=== PATIENT | female | born 1995 ===

== ENCOUNTER 2018-02-23 19:26 | Emergency (ER) | payer BC, MEDICAID ==
[2018-02-23 19:45] VITALS: BP 114/87; PULSE 87; RESP 16; TEMP 98.5; O2SAT 98
--- NOTE | 2018-02-23 20:01 | ED PDOC ---
HPI: Back Time Seen by Provider: 02/23/18 19:50 Chief Complaint (Nursing): Back Pain Chief Complaint (Provider): low back pain History Per: Patient Onset/Duration Of Symptoms: Worse Since (3 weeks ago) Current Symptoms Are (Timing): Still Present Additional Complaint(s): Aleyda is a 22 y/o female with a history of chronic back pain who presents to the ED complaining of low back pain. Patient states that she has always had some pain, but it has been worse in the past 3 weeks. She denies recent fall or trauma. Patient states since the pain has worsened in the past 3 weeks she has not taken anything for pain relief. She also mentions that she fell in 2012 and thinks that at that time she may have broken her tailbone. No associated bowel or bladder dysfunction. PMD: Dr. Walter Damon Past Medical History Reviewed: Historical Data, Nursing Documentation, Vital Signs Vital Signs: Last Vital Signs Temp 98.5 F 02/23/18 19:41 Pulse 87 02/23/18 19:41 Resp 16 02/23/18 19:41 BP 114/87 02/23/18 19:41 Pulse Ox 98 02/23/18 19:41 - Medical History PMH: Back Problems - Surgical History Surgical History: No Surg Hx - Family History Family History: States: No Known Family Hx - Living Arrangements Living Arrangements: With Family - Social History Current smoker - smoking cessation education provided: No Alcohol: None Drugs: Denies - Home Medications Home Medications: Ambulatory Orders Medication Instructions Recorded Cyclobenzaprine [Cyclobenzaprine 10 mg PO TID PRN #20 tab 02/23/18 HCl] Naproxen [Naprosyn] 500 mg PO BID #20 tab 02/23/18 - Allergies Allergies/Adverse Reactions: Allergies Allergy/AdvReac Type Severity Reaction Status Date / Time No Known Allergies Allergy Verified 02/23/18 19:41 Review of Systems ROS Statement: Except As Marked, All Systems Reviewed And Found Negative Genitourinary Female: Negative for: Dysuria Musculoskeletal: Positive for: Back Pain (lower) Physical Exam - Reviewed Nursing Documentation Reviewed: Yes Vital Signs Reviewed: Yes - Physical Exam Appears: Positive for: Well, Non-toxic, No Acute Distress Skin: Positive for: Normal Color. Negative for: Rash Cardiovascular/Chest: Positive for: Regular Rate, Rhythm Respiratory: Positive for: Normal Breath Sounds Back: Positive for: Vertebral Tenderness (across lower lumbar region, mild muscle spasm). Negative for: L CVA Tenderness, R CVA Tenderness Extremity: Positive for: Normal ROM, Other (patient is able to heel and toe walk ) Neurologic/Psych: Positive for: Alert, Oriented - Laboratory Results Urine POC: Negative - ECG O2 Sat by Pulse Oximetry: 98 (RA) Pulse Ox Interpretation: Normal Medical Decision Making Medical Decision Making: Time: 19:59 Initial Impression: 22 y/o female with exacerbation of chronic back pain Initial Plan: --Urine --Toradol IM Patient states Toradol injection did help the pain. Patient has history of chronic back pain for several years, no recent injury or trauma noted. Patient is ambulatory with steady gait. Patient was strongly advised to follow-up with her primary doctor for further evaluation of this ongoing issue. Prescriptions for Naprosyn and Flexeril provided for pain relief. Patient is stable for discharge. Scribe Attestation: Documented by Jonathan Pham, acting as a scribe for Landy Watts PA-C. Provider Scribe Attestation: All medical record entries made by the Scribe were at my direction and personally dictated by me. I have reviewed the chart and agree that the record accurately reflects my personal performance of the history, physical exam, medical decision making, and the department course for this patient. I have also personally directed, reviewed, and agree with the discharge instructions and disposition. Disposition - Clinical Impression Clinical Impression: Chronic back pain - Patient ED Disposition Is Patient to be Admitted: No Counseled Patient/Family Regarding: Diagnosis, Need For Followup, Rx Given - Disposition Referrals: Sergo Damon [Medical Doctor] - Disposition: Routine/Home Disposition Time: 19:59 Condition: STABLE Additional Instructions: Take prescription meds as directed. Avoid heavy lifting and rest as much as possible. Contact her primary doctor to arrange for follow-up visit for this onging issue. Prescriptions: Cyclobenzaprine [Cyclobenzaprine HCl] 10 mg PO TID PRN #20 tab PRN Reason: Muscle Spasm Naproxen [Naprosyn] 500 mg PO BID #20 tab Instructions: Chronic Pain (DC), Low Back Pain (DC), Back Exercises Forms: [employer] (Citizen Of [place])
== END 2018-02-23 20:16 | disposition home or self-care (01) ==
LOC: H.ER 19:26
DX: M54.9 Dorsalgia, unspecified (principal); G89.29 Other chronic pain
CPT/HCPCS: 81025; 96372; 99283; J1885

== ENCOUNTER 2018-07-16 18:23 | Inpatient (IN) | payer BC, MEDICAID ==
[2018-07-16 20:21] LABS: BASO % 0.5 % (0.0-2.0); EOS # 0.1 K/uL (0.0-0.7); EOS % 1.4 % (0.0-4.0); HEMOGLOBIN 12.2 g/dL (12.0-16.0); LYMPH # 2.1 K/uL (1.0-4.3); LYMPH % 29.1 % (20.0-40.0); MEAN CELL VOLUME 86.5 fl (81.0-99.0); MEAN CORPUSCULAR HEMOGLOBIN 28.2 pg (27.0-31.0); MEAN CORPUSCULAR HGB CONC 32.6 g/dL (33.0-37.0); MEAN PLATELET VOLUME 8.5 fl (7.2-11.7); MONO # 0.5 K/uL (0.0-0.8); MONO % 7.5 % (0.0-10.0); NEUT # 4.4 K/uL (1.8-7.0); NEUT % 61.5 % (50.0-75.0); NRBC % 0.2 % (0.0-0.0); RBC 4.32 Mil/uL (3.80-5.20); RED CELL DISTRIBUTION WIDTH 14.1 % (11.5-14.5); WHITE BLOOD COUNT 7.2 K/uL (4.8-10.8)
--- NOTE | 2018-07-16 20:26 | ED PDOC ---
HPI: Abdomen Time Seen by Provider: 07/16/18 19:19 Chief Complaint (Nursing): Chest Pain Chief Complaint (Provider): Epigastric Pain History Per: Patient History/Exam Limitations: no limitations Onset/Duration Of Symptoms: Days (x1) Current Symptoms Are (Timing): Still Present Location Of Pain/Discomfort: Epigastric Associated Symptoms: Nausea, Vomiting. denies: Fever Exacerbating Factors: denies: Cough Additional Complaint(s): 23 year old female presents to the ED complaining of epigastric pain for 1 day associated with 1 week of intermittent nausea and vomiting. She indicates no nausea now. Patient reports pain is worse when she eats and takes deep breaths and denies associated cough or fever. PMD: Micheal Briseno Past Medical History Reviewed: Historical Data, Nursing Documentation, Vital Signs Vital Signs: Last Vital Signs Temp 98.2 F 07/16/18 18:28 Pulse 61 07/16/18 20:12 Resp 17 07/16/18 20:12 BP 128/82 07/16/18 18:28 Pulse Ox 100 07/16/18 20:33 - Medical History PMH: Back Problems - Surgical History Surgical History: No Surg Hx - Family History Family History: States: Unknown Family Hx - Social History Current smoker - smoking cessation education provided: No Alcohol: None Drugs: Denies - Home Medications Home Medications: Ambulatory Orders Medication Instructions Recorded Cyclobenzaprine [Cyclobenzaprine 10 mg PO TID PRN #20 tab 02/23/18 HCl] Naproxen [Naprosyn] 500 mg PO BID #20 tab 02/23/18 - Allergies Allergies/Adverse Reactions: Allergies Allergy/AdvReac Type Severity Reaction Status Date / Time No Known Allergies Allergy Verified 02/23/18 19:41 Review of Systems ROS Statement: Except As Marked, All Systems Reviewed And Found Negative Constitutional: Negative for: Fever Respiratory: Negative for: Cough Gastrointestinal: Positive for: Nausea, Vomiting, Abdominal Pain (epigastric) Physical Exam - Reviewed Nursing Documentation Reviewed: Yes Vital Signs Reviewed: Yes - Physical Exam Appears: Positive for: Non-toxic, No Acute Distress Head Exam: Positive for: ATRAUMATIC, NORMOCEPHALIC Skin: Positive for: Normal Color, Warm, Dry Eye Exam: Positive for: Normal appearance Neck: Positive for: Normal, Painless ROM Cardiovascular/Chest: Positive for: Regular Rate, Rhythm. Negative for: Murmur Respiratory: Positive for: Normal Breath Sounds. Negative for: Wheezing, Respiratory Distress Gastrointestinal/Abdominal: Positive for: Tenderness (Epigastric), Other (Klein 's sign ) Extremity: Positive for: Normal ROM Neurologic/Psych: Positive for: Alert, Oriented. Negative for: Motor/Sensory Deficits - Laboratory Results Result Diagrams: 07/16/18 20:13 07/16/18 20:13 - ECG O2 Sat by Pulse Oximetry: 100 (RA) Pulse Ox Interpretation: Normal Medical Decision Making Medical Decision Making: Initial Impression: 23 y/o female with epigastric and RUQ pain Initial Plan: --ECG --CMP --Lipase --Troponin --ED urine dipstick --CBC --Pepcid 20mg IV --Toradol 30mg IV --Gallbladder and pancreas US 23:38 Labs were reviewed with no clinically significant abnormalities. Patient reports persistent pain. Surgical consult was ordered and patient will be admitted under Dr. Bah who is covering for Dr. Damon. Blood Culture and additional labs ordered. Ultrasound Gallbladder: FINDINGS: Liver: There is borderline hepatomegaly. Gallbladder: There is severe gallbladder wall swelling and edema, up to 1.5 cm thick. There is a small amount of pericholecystic fluid. There are no gallstones.The research technologist reported positive sonographic Klein's sign. Common bile duct: Normal. No stones. No dilation. Pancreas: Visualized pancreas is unremarkable. Right kidney: Normal. No mass. No hydronephrosis. IMPRESSION: 1. There is severe gallbladder wall swelling and edema, up to 1.5 cm thick. There is a small amount of pericholecystic fluid. There are no gallstones.The research technologist reported positive sonographic Klein's sign. Impression. Differential considerations are acute cholecystitis (most likely), gallbladder hyperplastic cholecystosis, liver disease, or hypoalbuminemia. 2. There is borderline hepatomegaly. Scribe Attestation: Documented by Dmitriy Dougherty acting as a scribe for Johnnie Nichols MD. Provider Scribe Attestation: All medical record entries made by the Scribe were at my direction and personally dictated by me. I have reviewed the chart and agree that the record accurately reflects my personal performance of the history, physical exam, medical decision making, and the department course for this patient. I have also personally directed, reviewed, and agree with the discharge instructions and disposition. Disposition - Clinical Impression Clinical Impression: Acalculous cholecystitis - Patient ED Disposition Is Patient to be Admitted: Yes - Disposition Disposition Time: 23:40 Condition: FAIR Forms: [employer] ([place])
[2018-07-16 20:36] LABS: ALB/GLOB RATIO 1.3 (1.0-2.1); ALBUMIN 3.6 g/dL (3.5-5.0); ALT/SGPT 46 U/L (9-52); AST/SGOT 29 U/L (14-36); BLOOD UREA NITROGEN 10 mg/dl (7-17); CALCIUM 8.6 mg/dL (8.4-10.2); GFR NON-AFRICAN AMERICAN > 60; LIPASE 37 U/L (23-300)
[2018-07-16] MEDS ORDERED: Piperacillin/Tazobact 3.375 GM in Sodium Chloride 0.9% 100 ML IV STA (23:30)
[2018-07-16] MEDS ORDERED: Piperacillin/Tazobact 3.375 gm Inj IVPB ONE (23:56)
[2018-07-16] MEDS ORDERED: Morphine 4 MG/ML VIAL ONE (23:57)
[2018-07-17] MEDS: Dextrose 5%/0.45% NS 1,000 ML IV SCH ×2 (00:02→07:48)
[2018-07-17] MEDS ORDERED: Morphine 4 MG/ML VIAL IVP ONE (00:15)
--- NOTE | 2018-07-17 00:19 | CP.PCM.CON ---
<Yan Curtis - Last Filed: 07/17/18 06:48> History of Present Illness - History of Present Illness History of Present Illness: General Surgery Consult Note for Dr. Hamilton Reason for consult: abdominal pain, nausea/vomiting 23 F with no significant PMN presents to [facility] with complaint of epigastric abdominal pain. Patient was seen and evaluated in the ED. Patient states that the pain had been present for 1 week. She reports gradual onset. She states that she has had pain a few months ago as well. She also reports associated nausea/vomiting with NBNB emesis. She rates pain as moderate to severe. She describes it a sharp and intermittent pain located in epigastrium radiating to RUQ/back. Eating and deep breaths exacerbates pain while nothing alleviates it. Denies fever/chills, hest pain, SOB, palpitations, diarrhea, constipation, urinary symptoms. PMD: Dr. Lainez PMH: denies PSH: Denies ALL: NKDA Meds: Denies FH: noncontributory Social: denies tobacco/EtOH/illicit drugs use. Lives with family. 3 kids normal vaginal delivery Review of Systems - Review of Systems All systems: reviewed and no additional remarkable complaints except (as per HPI ) Past Patient History - Infectious Disease Hx of Infectious Diseases: None - Past Social History Alcohol: None Drugs: Denies - PSYCHIATRIC Hx Substance Use: No - SURGICAL HISTORY Hx Surgeries: No - ANESTHESIA Hx Anesthesia: No Meds Allergies/Adverse Reactions: Allergies Allergy/AdvReac Type Severity Reaction Status Date / Time No Known Allergies Allergy Verified 02/23/18 19:41 - Medications Medications: Current Medications Piperacillin Sod/Tazobactam (Sod 3.375 gm/ Sodium Chloride) 100 mls @ 100 mls/ hr IV STAT STA PRN Reason: Protocol Stop: 07/17/18 00:29 Last Admin: 07/17/18 00:01 Dose: 100 mls/hr Dextrose/Sodium Chloride (Dextrose 5%/0.45% Ns 1000 Ml) 1,000 mls @ 125 mls/hr IV .Q8H COUNTS INCLUDE 234 BEDS AT THE [facility] Last Admin: 07/17/18 00:02 Dose: 125 mls/hr Physical Exam - Constitutional Appears: Well, No Acute Distress - Head Exam Head Exam: ATRAUMATIC, NORMOCEPHALIC - Eye Exam Eye Exam: EOMI, Normal appearance Pupil Exam: PERRL - ENT Exam ENT Exam: Mucous Membranes Moist - Respiratory Exam Respiratory Exam: NORMAL BREATHING PATTERN - Cardiovascular Exam Cardiovascular Exam: REGULAR RHYTHM - GI/Abdominal Exam GI & Abdominal Exam: Normal Bowel Sounds, Soft, Tenderness (RUQ). absent: Distended, Firm, Rebound, Rigid Additional comments: (+) Klein's sign - Extremities Exam Extremities exam: Positive for: normal capillary refill, pedal pulses present. Negative for: calf tenderness - Back Exam Back exam: absent: CVA tenderness (L), CVA tenderness (R) - Neurological Exam Neurological exam: Alert, Normal Gait, Oriented x3 - Psychiatric Exam Psychiatric exam: Normal Affect, Normal Mood - Skin Skin Exam: Dry, Intact, Normal Color, Warm Results - Vital Signs Recent Vital Signs: Last Vital Signs Temp 98.2 F 07/16/18 18:28 Pulse 61 07/16/18 20:12 Resp 17 07/16/18 20:12 BP 128/82 07/16/18 18:28 Pulse Ox 100 07/16/18 23:41 - Labs Result Diagrams: 07/16/18 20:13 07/16/18 20:13 Labs: Laboratory Results - last 24 hr 07/16/18 07/16/18 20:13 20:13 WBC 7.2 RBC 4.32 Hgb 12.2 Hct 37.4 MCV 86.5 MCH 28.2 MCHC 32.6 L RDW 14.1 Plt Count 321 MPV 8.5 Neut % (Auto) 61.5 Lymph % (Auto) 29.1 [place] % (Auto) 7.5 Eos % (Auto) 1.4 Baso % (Auto) 0.5 Neut # (Auto) 4.4 Lymph # (Auto) 2.1 [place] # (Auto) 0.5 Eos # (Auto) 0.1 Baso # (Auto) 0.0 Sodium 141 Potassium 3.9 Chloride 107 Carbon Dioxide 29 Anion Gap 9 L BUN 10 Creatinine 0.8 Est GFR ( Amer) > 60 Est GFR (Non-Af Amer) > 60 Random Glucose 93 Calcium 8.6 Total Bilirubin 0.3 AST 29 ALT 46 Alkaline Phosphatase 81 Troponin I < 0.0120 Total Protein 6.3 Albumin 3.6 Globulin 2.7 Albumin/Globulin Ratio 1.3 Lipase 37 Assessment & Plan - Assessment and Plan (Free Text) Assessment: 23 F with abdominal pain and nausea/vomiting; ABUS shows GB wall thickening of 1.5 cm Plan: -NPO -IV fluids -IV abx -Analgesics/Anti-emetics PRN -I's&O's -Plan for Laparoscopic Cholecystectomy in OR Sunday -Further recommendations as per Dr. Alfonso Curtis PGY2 <Soo Hamilton - Last Filed: 07/17/18 17:30> Meds - Medications Medications: Current Medications Piperacillin Sod/Tazobactam (Sod 3.375 gm/ Sodium Chloride) 100 mls @ 100 mls/ hr IVPB Q6 GER PRN Reason: Protocol Last Admin: 07/17/18 16:17 Dose: 100 mls/hr Metronidazole (Flagyl 500mg/100ml Ns) 100 mls @ 100 mls/hr IVPB Q8 GER PRN Reason: Protocol Lactated Ringer's (Lactated Ringer's) 1,000 mls @ 150 mls/hr IV .Q6H40M GER Last Admin: 07/17/18 16:12 Dose: Not Given Morphine Sulfate (Morphine) 2 mg IVP Q4 PRN PRN Reason: Pain, moderate (4-7) Ondansetron HCl (Zofran Inj) 4 mg IVP Q6 PRN PRN Reason: Nausea/Vomiting Last Admin: 07/17/18 01:08 Dose: 4 mg Results - Vital Signs Recent Vital Signs: Last Vital Signs Temp 97.8 F 07/17/18 16:14 Pulse 51 L 07/17/18 16:14 Resp 18 07/17/18 16:14 BP 124/81 07/17/18 16:14 Pulse Ox 98 07/17/18 16:14 - Labs Result Diagrams: 07/17/18 07:30 07/17/18 07:30 Labs: Laboratory Results - last 24 hr 07/16/18 07/16/18 07/17/18 20:13 20:13 00:00 WBC 7.2 RBC 4.32 Hgb 12.2 Hct 37.4 MCV 86.5 MCH 28.2 MCHC 32.6 L RDW 14.1 Plt Count 321 MPV 8.5 Neut % (Auto) 61.5 Lymph % (Auto) 29.1 [place] % (Auto) 7.5 Eos % (Auto) 1.4 Baso % (Auto) 0.5 Neut # (Auto) 4.4 Lymph # (Auto) 2.1 [place] # (Auto) 0.5 Eos # (Auto) 0.1 Baso # (Auto) 0.0 PT INR APTT Sodium 141 Potassium 3.9 Chloride 107 Carbon Dioxide 29 Anion Gap 9 L BUN 10 Creatinine 0.8 Est GFR ( Amer) > 60 Est GFR (Non-Af Amer) > 60 Random Glucose 93 Lactic Acid 0.8 Calcium 8.6 Total Bilirubin 0.3 AST 29 ALT 46 Alkaline Phosphatase 81 Troponin I < 0.0120 Total Protein 6.3 Albumin 3.6 Globulin 2.7 Albumin/Globulin Ratio 1.3 Lipase 37 Blood Type Blood Type Confirm Antibody Screen BBK History Checked 07/17/18 07/17/18 07/17/18 07:30 07:30 07:30 WBC 7.6 RBC 4.34 Hgb 12.3 Hct 37.5 MCV 86.4 MCH 28.5 MCHC 32.9 L RDW 13.9 Plt Count 309 MPV Neut % (Auto) Lymph % (Auto) [place] % (Auto) Eos % (Auto) Baso % (Auto) Neut # (Auto) Lymph # (Auto) [place] # (Auto) Eos # (Auto) Baso # (Auto) PT 13.1 INR 1.2 APTT 28.7 Sodium Potassium Chloride Carbon Dioxide Anion Gap BUN Creatinine Est GFR ( Amer) Est GFR (Non-Af Amer) Random Glucose Lactic Acid Calcium Total Bilirubin AST ALT Alkaline Phosphatase Troponin I Total Protein Albumin Globulin Albumin/Globulin Ratio Lipase Blood Type O POSITIVE Blood Type Confirm Antibody Screen Negative BBK History Checked No verified bt 07/17/18 07/17/18 07:30 09:21 WBC RBC Hgb Hct MCV MCH MCHC RDW Plt Count MPV Neut % (Auto) Lymph % (Auto) [place] % (Auto) Eos % (Auto) Baso % (Auto) Neut # (Auto) Lymph # (Auto) [place] # (Auto) Eos # (Auto) Baso # (Auto) PT INR APTT Sodium 142 Potassium 4.0 Chloride 109 H Carbon Dioxide 29 Anion Gap 8 L BUN 10 Creatinine 0.9 Est GFR ( Amer) > 60 Est GFR (Non-Af Amer) > 60 Random Glucose 88 Lactic Acid Calcium 8.5 Total Bilirubin 0.6 AST 27 ALT 41 Alkaline Phosphatase 72 Troponin I Total Protein 6.3 Albumin 3.4 L Globulin 2.9 Albumin/Globulin Ratio 1.2 Lipase Blood Type Blood Type Confirm O POSITIVE Antibody Screen BBK History Checked Assessment & Plan - Assessment and Plan (Free Text) Plan: I personally saw and examined the patient with the resident staff and agree with the above assessment and plan. I personally reviewed the available diagnostic images and imaging reports. Patient states she is currently hungry, subjective pain the same. HD stable, afebrile and not ill appearing. Abdominal tenderness in upper abd and RUQ, Labs normal. US without gallstones, but significant inflammation and fluid, wall thickening, with atypical appearance, possible emphysematous gallbladder vs adenomyosis vs. walled off perforation? Findings discussed with radiology attending over the phone. Will obtain CT AP for further characterization. Patient to have lap cholecystectomy tomorrow am after 24-48 hours of abx. Continue zosyn, add flagyl. NPO, IVF
[2018-07-17] MEDS: Lactated Ringer's 1,000 ML IV SCH ×4 (01:11→16:12)
[2018-07-17] MEDS: Piperacillin/Tazobact 3.375 GM in Sodium Chloride 0.9% 100 ML IVPB SCH ×4 (06:00→21:15)
--- NOTE | 2018-07-17 08:23 | CARD ---
APPROVED REPORT Date of service: 07/16/2018 <Conclusion> Normal sinus rhythm Normal ECG
--- NOTE | 2018-07-17 08:36 | CP.PCM.HP ---
<Nuno Granados - Last Filed: 07/17/18 15:55> History of Present Illness - History of Present Illness History of Present Illness: 23 yo f no significant pmhx presents to ED with epigastric pain, nausea and vomiting x 1 week. Sharp in character. Pain also radiates to RUQ. Denies history of similar symptoms. ED: US of gallbladder revealed gallbladder wall thickening and edema up to 1.5 cm thick. pericholecystic fluid. Positive Klein's sign per surgery: Dr. Lainez pmhx: none fmhx: none surg: none soc: denies smoking, alcohol, illicit drugs NKDA Present on Admission - Present on Admission Any Indicators Present on Admission: No History of DVT/PE: No History of Uncontrolled Diabetes: No Urinary Catheter: No Review of Systems - Constitutional Constitutional: As Per HPI - Cardiovascular Cardiovascular: absent: Chest Pain - Respiratory Respiratory: absent: Cough, Dyspnea - Gastrointestinal Gastrointestinal: As Per HPI, Abdominal Pain, Nausea, Vomiting Past Patient History - Infectious Disease Hx of Infectious Diseases: None - Past Medical History & Family History Past Medical History?: Yes - Past Social History Smoking Status: Never Smoked Alcohol: None Drugs: Denies Home Situation {Lives}: With Family - CARDIAC Hx Cardiac Disorders: No - PULMONARY Hx Respiratory Disorders: No - NEUROLOGICAL Hx Neurological Disorder: No - HEENT Hx HEENT Problems: No - RENAL Hx Chronic Kidney Disease: No - ENDOCRINE/METABOLIC Hx Endocrine Disorders: No - HEMATOLOGICAL/ONCOLOGICAL Hx Blood Disorders: No Hx AIDS: No Hx Human Immunodeficiency Virus (HIV): No - INTEGUMENTARY Hx Dermatological Problems: No - MUSCULOSKELETAL/RHEUMATOLOGICAL Hx Back Pain: Yes Hx Falls: No - GASTROINTESTINAL Hx Gastrointestinal Disorders: No - GENITOURINARY/GYNECOLOGICAL Hx Genitourinary Disorders: No - PSYCHIATRIC Hx Substance Use: No - SURGICAL HISTORY Hx Surgeries: No - ANESTHESIA Hx Anesthesia: No Meds Allergies/Adverse Reactions: Allergies Allergy/AdvReac Type Severity Reaction Status Date / Time No Known Allergies Allergy Verified 02/23/18 19:41 Results - Vital Signs Recent Vital Signs: Last Vital Signs Temp 98.3 F 07/17/18 07:44 Pulse 58 L 07/17/18 07:44 Resp 20 07/17/18 07:44 BP 123/80 07/17/18 07:44 Pulse Ox 97 07/17/18 07:44 - Labs Result Diagrams: 07/17/18 07:30 07/17/18 07:30 Labs: Laboratory Results - last 24 hr 07/16/18 07/16/18 07/17/18 20:13 20:13 00:00 WBC 7.2 RBC 4.32 Hgb 12.2 Hct 37.4 MCV 86.5 MCH 28.2 MCHC 32.6 L RDW 14.1 Plt Count 321 MPV 8.5 Neut % (Auto) 61.5 Lymph % (Auto) 29.1 [place] % (Auto) 7.5 Eos % (Auto) 1.4 Baso % (Auto) 0.5 Neut # (Auto) 4.4 Lymph # (Auto) 2.1 [place] # (Auto) 0.5 Eos # (Auto) 0.1 Baso # (Auto) 0.0 Sodium 141 Potassium 3.9 Chloride 107 Carbon Dioxide 29 Anion Gap 9 L BUN 10 Creatinine 0.8 Est GFR ( Amer) > 60 Est GFR (Non-Af Amer) > 60 Random Glucose 93 Lactic Acid 0.8 Calcium 8.6 Total Bilirubin 0.3 AST 29 ALT 46 Alkaline Phosphatase 81 Troponin I < 0.0120 Total Protein 6.3 Albumin 3.6 Globulin 2.7 Albumin/Globulin Ratio 1.3 Lipase 37 Assessment & Plan - Assessment and Plan (Free Text) Plan: 23 yo F with no significant pmhx presents with abdo pain Abdominal us: Gallbladder wall thickening of 1.5 cm -Surgery on board: Dr. Hamilton. Plan for laparoscopic mat today: NPO, IVF, IV abx, pain management. I&Os -Continue with current treatment plan case dw Dr. Anthony Granados MD PGY2 <Jayy Cruz - Last Filed: 07/19/18 13:49> Results - Vital Signs Recent Vital Signs: Last Vital Signs Temp 98.1 F 07/18/18 14:34 Pulse 55 L 07/18/18 14:34 Resp 18 07/18/18 14:34 BP 108/67 07/18/18 14:34 Pulse Ox 98 07/18/18 14:34 - Labs Result Diagrams: 07/17/18 07:30 07/17/18 07:30 Assessment & Plan - Assessment and Plan (Free Text) Plan: Patient was personally seen and examined by me in rounds with residents. Available labs and diagnostic data reviewed. Case, Patient's condition and management plan discussed with residents in rounds. Agree with resident's progress note. Plan: As ordered.
[2018-07-17 09:11] LABS: HEMOGLOBIN 12.3 g/dL (12.0-16.0); MEAN CELL VOLUME 86.4 fl (81.0-99.0); MEAN CORPUSCULAR HEMOGLOBIN 28.5 pg (27.0-31.0); MEAN CORPUSCULAR HGB CONC 32.9 g/dL (33.0-37.0); RBC 4.34 Mil/uL (3.80-5.20); RED CELL DISTRIBUTION WIDTH 13.9 % (11.5-14.5); WHITE BLOOD COUNT 7.6 K/uL (4.8-10.8)
[2018-07-17 09:20] LABS: ALB/GLOB RATIO 1.2 (1.0-2.1); ALBUMIN 3.4 g/dL (3.5-5.0); ALT/SGPT 41 U/L (9-52); AST/SGOT 27 U/L (14-36); BLOOD UREA NITROGEN 10 mg/dl (7-17); CALCIUM 8.5 mg/dL (8.4-10.2); GFR NON-AFRICAN AMERICAN > 60
[2018-07-17 09:22] LABS: INR 1.2; PROTHROMBIN TIME 13.1 Seconds (9.8-13.1)
[2018-07-17 09:25] LABS: PARTIAL THROMBOPLASTIN TIME 28.7 Seconds (25.6-37.1)
--- NOTE | 2018-07-17 10:24 | US ---
Date of service: 07/16/2018 HISTORY: abdominal pain COMPARISON: None. TECHNIQUE: Sonographic evaluation of the right upper quadrant of the abdomen. FINDINGS: LIVER: Measures 19.9 cm in length. Normal echogenicity of the liver parenchyma. No mass. No intrahepatic bile duct dilatation. GALLBLADDER: Grossly abnormal gallbladder. The lumen of the gallbladder is smaller in caliber the gallbladder wall is markedly thickened at 15.3 mm with a somewhat stratified appearance to it. . No gallstones or sludge within the gallbladder seen. No gross polyps identified. Gallbladder wall also suggests some edema. There is positive ultrasound Klein sign elicited as well. COMMON BILE DUCT: Measures 2 point mm. No stones. No dilatation. PANCREAS: Unremarkable as visualized. No mass. No ductal dilatation. RIGHT KIDNEY: Measures 11.5 x 4.3 x 4.8 cm in length. Normal echogenicity. No calculus, mass, or hydronephrosis. AORTA: No aneurysmal dilatation. IVC: Unremarkable. OTHER FINDINGS: Unusual infectious and inflammatory etiologies are considerations. An infiltrative process not excluding lymphoma and leukemia are also considerations. IMPRESSION: Grossly abnormal appearing gallbladder without definite gallstones seen. Extensively thickened heterogeneous/stratified appearing gallbladder wall measuring up to 1.5 cm. Positive ultrasound Klein sign. The exact etiology for the grossly abnormal markedly thickened gallbladder wall appearance is unclear. A long-standing acalculous cholecystitis is 1 consideration. Unusual inflammatory/infectious etiologies are another. An infiltrative process like leukemia and lymphoma are not excluded. An unusual hyperplastic cholesterolosis state is another. Mild hepatomegaly. Concordant results (preliminary interpretation) provided by [facility].
[2018-07-17] MEDS ORDERED: Iohexol 300 100 ML IJ ONE (11:52)
[2018-07-17] MEDS ORDERED: Sodium Chloride 0.9% 50 ML IV ONE (11:52)
--- NOTE | 2018-07-17 13:55 | CT ---
Date of service: 07/17/2018 PROCEDURE: CT Abdomen and Pelvis with contrast HISTORY: Abnormal gallbladder on ultrasound. COMPARISON: July 16, 2018. Gallbladder ultrasound Summary of findings on the comparison examination:Grossly abnormal appearing gallbladder without definite gallstones seen. Extensively thickened heterogeneous/stratified appearing gallbladder wall measuring up to 1.5 cm. Positive ultrasound Klein sign TECHNIQUE: Contrast dose: 96 cc Omnipaque 300. Radiation dose: Total exam DLP = 835.71 mGy-cm. This CT exam was performed using one or more of the following dose reduction techniques: Automated exposure control, adjustment of the mA and/or kV according to patient size, and/or use of iterative reconstruction technique. FINDINGS: LOWER THORAX: Trace bilateral pleural effusions. LIVER: Hepatic steatosis. No focal masses. No intrahepatic bile duct dilatation or perihepatic ascites. GALLBLADDER AND BILE DUCTS: Distended gallbladder, no visible gallstones. Pericholecystic fluid noted. Trace fluid about the liver identified. PANCREAS: Unremarkable. No gross lesion or ductal dilatation. SPLEEN: Unremarkable. ADRENALS: Unremarkable. No mass. KIDNEYS AND URETERS: Unremarkable. No hydronephrosis. No solid mass. VASCULATURE: Unremarkable. No aortic aneurysm. BOWEL: Unremarkable. No obstruction. No gross mural thickening. APPENDIX: Normal appendix. PERITONEUM: Unremarkable. No free fluid. No free air. LYMPH NODES: Unremarkable. No enlarged lymph nodes. BLADDER: Unremarkable. REPRODUCTIVE: Mildly distorted contrast-enhancing cyst right adnexa with adjacent free fluid as well as fluid in the cul-de-sac. Findings likely represent recently ruptured cyst. Mean Hounsfield units of the fluid in the pelvis do not exceed 20. Sher BONES: No acute fracture. OTHER FINDINGS: None. IMPRESSION: Distended gallbladder, gallstones are not identified. Pericholecystic and right upper quadrant fluid noted. Acalculous cholecystitis should be considered. Findings consistent with recently ruptured right adnexal cysts.
[2018-07-17] MEDS: metroNIDAZOLE 500mg/100ml NS 100 ML IVPB SCH (17:54)
[2018-07-18] MEDS: metroNIDAZOLE 500mg/100ml NS 100 ML IVPB SCH ×3 (00:06→16:02)
[2018-07-18] MEDS: Lactated Ringer's 1,000 ML IV SCH ×4 (00:31→10:00)
[2018-07-18] MEDS: Piperacillin/Tazobact 3.375 GM in Sodium Chloride 0.9% 100 ML IVPB SCH ×3 (03:05→16:01)
[2018-07-18] MEDS ORDERED: Succinylcholine 200 mg/10 ml Inj IV ONE ×2 (07:18→09:39)
[2018-07-18] MEDS ORDERED: Propofol 10 mg/ml Inj (20 ML) ONE ×2 (07:18→09:39)
[2018-07-18] MEDS ORDERED: Rocuronium 10 mg/ml (5 ml) ONE ×2 (07:18→08:14)
[2018-07-18] MEDS ORDERED: Lidocaine 4% (Laryng-O-Jet) Kit MM ONE (07:19)
[2018-07-18] MEDS ORDERED: Dexamethasone 4 mg/1 ml ONE (07:22)
[2018-07-18] MEDS ORDERED: Midazolam 2 MG/2 ML VIAL ONE (07:33)
[2018-07-18] MEDS ORDERED: Piperacillin/Tazobact 3.375 gm Inj IVPB ONE (07:50)
[2018-07-18] MEDS ORDERED: metroNIDAZOLE 500mg/100ml NS IVPB ONE (07:50)
[2018-07-18] MEDS: Bupivacaine HCl 0.25% PF (30 ml) Inj ONE ×3 (07:53→09:05)
[2018-07-18] MEDS ORDERED: Lidocaine 1% (50 ml) Vial IV ONE ×3 (07:53→09:05)
[2018-07-18] MEDS ORDERED: Neostigmine 1:1000 (1 mg/ml) Inj ONE ×2 (08:17→09:30)
[2018-07-18] MEDS ORDERED: Lactated Ringer's 1,000 ML IV ONE ×2 (08:57→08:58)
--- NOTE | 2018-07-18 09:20 | CP.PCM.PN ---
Addendum entered and electronically signed by Nuno Granados MD 07/18/18 16:55: Pt seen and examined post lap mat. Reports significant improvement. pain well controlled. Denies nausea, vomiting, cp/sob. Ambulates without difficulty. case dw Dr. Anthony Granados MD PGY2 Original Note: <Nuno Granados - Last Filed: 07/18/18 16:37> Subjective - Date & Time of Evaluation Date of Evaluation: 07/18/18 Time of Evaluation: 08:20 - Subjective Subjective: Pt seen and examined at bedside this AM with Dr. Cruz. Pt is scheduled for lap mat this AM. No overnight events. Objective - Vital Signs/Intake and Output Vital Signs (last 24 hours): Temp Pulse Resp BP Pulse Ox 98.6 F 56 L 18 106/70 99 07/17/18 23:43 07/17/18 23:43 07/17/18 23:43 07/17/18 23:43 07/17/18 23:43 Intake and Output: 07/18/18 07/18/18 06:59 18:59 Intake Total 1300 Balance 1300 - Medications Medications: Current Medications Piperacillin Sod/Tazobactam (Sod 3.375 gm/ Sodium Chloride) 100 mls @ 100 mls/ hr IVPB Q6 GER PRN Reason: Protocol Last Admin: 07/18/18 03:05 Dose: 100 mls/hr Metronidazole (Flagyl 500mg/100ml Ns) 100 mls @ 100 mls/hr IVPB Q8 GER PRN Reason: Protocol Last Admin: 07/18/18 08:00 Dose: Not Given Lactated Ringer's (Lactated Ringer's) 1,000 mls @ 150 mls/hr IV .Q6H40M GER Last Admin: 07/18/18 06:01 Dose: Not Given Morphine Sulfate (Morphine) 2 mg IVP Q4 PRN PRN Reason: Pain, moderate (4-7) Ondansetron HCl (Zofran Inj) 4 mg IVP Q6 PRN PRN Reason: Nausea/Vomiting Last Admin: 07/18/18 03:02 Dose: 4 mg - Labs Labs: 07/17/18 07:30 07/17/18 07:30 PT 13.1 Seconds (9.8-13.1) 07/17/18 07:30 INR 1.2 07/17/18 07:30 APTT 28.7 Seconds (25.6-37.1) 07/17/18 07:30 - Constitutional Appears: Well - Eye Exam Eye Exam: EOMI - Respiratory Exam Respiratory Exam: Clear to Ausculation Bilateral, NORMAL BREATHING PATTERN. absent: Wheezes - Cardiovascular Exam Cardiovascular Exam: REGULAR RHYTHM, +S1, +S2 - GI/Abdominal Exam GI & Abdominal Exam: Soft, Tenderness (mild), Normal Bowel Sounds - Neurological Exam Neurological Exam: Awake, CN II-XII Intact, Oriented x3 - Psychiatric Exam Psychiatric exam: Normal Affect, Normal Mood Assessment and Plan - Assessment and Plan (Free Text) Plan: Pt planned for lap mat this am. Will follow up post procedure. case dw Dr. Anthony Granados MD PGY2 <Jayy Cruz - Last Filed: 07/19/18 13:53> Objective - Vital Signs/Intake and Output Vital Signs (last 24 hours): Temp Pulse Resp BP Pulse Ox 98.1 F 55 L 18 108/67 98 07/18/18 14:34 07/18/18 14:34 07/18/18 14:34 07/18/18 14:34 07/18/18 14:34 - Labs Labs: 07/17/18 07:30 07/17/18 07:30 PT 13.1 Seconds (9.8-13.1) 07/17/18 07:30 INR 1.2 07/17/18 07:30 APTT 28.7 Seconds (25.6-37.1) 07/17/18 07:30 Assessment and Plan - Assessment and Plan (Free Text) Plan: Patient was personally seen and examined by me in rounds with residents. Available labs and diagnostic data reviewed. Case, Patient's condition and management plan discussed with residents in rounds. Agree with resident's progress note. Plan: As ordered.
--- NOTE | 2018-07-18 09:45 | PCM.SURG1 ---
Surgeon's Initial Post Op Note - Surgeon's Notes Surgeon: Alfonso [employer]aging [employer] Inspector: PGY4, Ever PGY2 Type of Anesthesia: General Endo, Local Pre-Operative Diagnosis: Cholecystitis Operative Findings: see op note Post-Operative Diagnosis: Cholecystitis Operation Performed: Laparoscopic cholecystectomy Specimen/Specimens Removed: gallbladder Estimated Blood Loss: EBL {In ML}: 25 Blood Products Given: N/A Drains Used: No Drains Post-Op Condition: Good Date of Surgery/Procedure: 07/18/18 Time of Surgery/Procedure: 07:45
[2018-07-18] MEDS ORDERED: Lactated Ringer's 1,000 ML IV SCH (10:30)
--- NOTE | 2018-07-18 11:21 | PCM.OP ---
Operative Report - Operative Report Date of Surgery/Procedure: 07/18/18 Time of Surgery/Procedure: 08:00 Surgeon: Soo Hamilton MD [place] Steward: Hemal Reyna DO (PGY4 resident); Yan Strickland DO (PGY2 resident) Anesthesia/Sedation: General endotracheal; 1% lidocaine + 0.25% Marcaine mix local Pre-Operative Diagnosis: Acalculus cholecystitis. Umbilical hernia. Abdominal Ascites. Morbid Obesity. BMI 32.8 Post-Operative Diagnosis: Acalculus cholecystitis. Umbilical hernia. Abdominal Ascites. Morbid Obesity. BMI 32.8 Indication for Surgery: This is a 23-year-old female presented to ED with 1 week intermittent RUQ pain cholecystitis on RUQ US without findings of stones. Further imaging obtained and showed inflamed dilated, fluid filled gallbladder and wall thickening and inflammation; Details of HPI in clinical chart. Taken to the operating room for laparoscopic cholecystectomy. Patient understands the risks and benefits of the procedure as documented in the clinic chart but specifically risk of cystic duct leak and common bile duct injury, need for open surgery and has consented to the procedure. Operative Findings: Dilated, Fluid filled gallbladder with multple stones. 250cc of simple appearing perihepatic ascites drained and sent for culture. Clips in place on cystic duct and cystic artery at end of case without evidence of bleeding or bile leak. Fluid in pelvis and inflamed adnexa on the right consistent with CT findings of recent ruptured cyst. Procedure/Operation Description: PROCEDURES PERFORMED: 1)Laparoscopic Cholecystectomy. 2)Umbilical hernia repair. . DESCRIPTION OF PROCEDURE: The patient was given a preoperative dose of Zosyn/fagyl 20 minutes before the incision. SCD boots were placed for DVT prophylaxis. The patient had an orogastric tube placed in order to empty the stomach after the induction of general anesthesia. Upper and lower body warmer placed to maintain normothermia. Secure straps placed above and bleow the knees and footboard placed. Arms placed on arm boards out at 80 degress. All bony prominences were padded. A timeout was performed prior to incision. The abdomen was prepped and draped in sterile fashion. All skin incisions were made using an 11 blade scalpel after being pre-anesthetized with local anesthesia. In the infraaumbilical midline, a circumlinear incision was made and the umbilical raphe was identified and the fascia was divided between clamps at its base entering the abdomen in an open fashion. A 11-mm trocar was inserted in the abdomen and the abdomen was insufflated to 15 mmHg pressure with CO2. A 30- degree viewing scope was then inserted and the abdomen was generally inspected and there was not found to be any additional signs of pathology. In the right upper quadrant, two 5-mm ports were placed after the under direct vision and in the subxiphoid midline, an 11-mm radially dilating port was placed in the similar fashion. . There was mild inflammation in the right upper abdomen and a large dilated gallbladder fundus was identified beneath the liver edge. Simple yellow ascites fluid aspirated and sent for culture. The fundus of the gallbladder was then retracted to the right upper quadrant and the neck of the gallbladder was visualized. The peritoneal attachments from the lateral portion of the gallbladder/cystic duct junction were gently dissected and divided to open up the [place]. The [place] was then dissected up onto the liver bed posterior to the gallbladder in order to ensure that this was the cystic duct and not tenting of the common bile duct. The peritoneal attachments on the medial portion of the gallbladder going up to the side of the liver were taken and distal third of galbbladder dissected off the cystic plate. The critical view was obtained. The cystic artery and duct were sequentially then doubly clipped and ligated and the clips were inspected. . Once this was completed, the gallbladder was dissected free from the liver bed using electrocautery and placed this in an endo catch bag. An additional area of either a hepatic LN or hepatic tissue 1cm adherent to gallbladder wall was removed and sent for pathology with main specimen. This was withdrawn through the umbilical port. The abdomen was reinspected. The clips were in good position on the cystic artery and duct stumps and the abdomen was generally irrigated and drained. The ports were then removed from the abdomen and the abdomen was desufflated with air. The umbilical port was closed with figure-of- eight 0- Vicryl suture. Skin incisions closed with 4-0 Vicryl sutures, and finally dermabond applied to skin. The patient tolerated the procedure well and was extubated and stable in recovery after the procedure. . I was present throughout the entirety of the procedure. Sponge, needle and instrument counts were correct. Estimated Blood Loss: 25mL Complications: none Specimen: gallbladder. Liver nodule Discharge & Condition: above
[2018-07-18 14:35] VITALS: RESP 18
[2018-07-18 14:40] VITALS: BP 108/67; PULSE 55; TEMP 98.1; O2SAT 98
[2018-07-18] MEDS ORDERED: Oxycodone/Acetaminophen 5/325 mg Tab PO PRN (15:11)
== END 2018-07-18 18:05 | disposition home or self-care (01) | DRG 493 ==
LOC: SUPCPDRO 18:23 → H.ER 18:23 → H.ERHOLD 23:28 → H.MEDSURG1 07-17 02:52
PROVIDERS: ADMIT Internal Medicine; ATTEND Internal Medicine
PROC: 0WQF4ZZ Repair Abdominal Wall, Percutaneous Endoscopic Approach (ICD-10-PCS; 2018-07-18)
PROC: 0FT44ZZ Resection of Gallbladder, Percutaneous Endoscopic Approach (ICD-10-PCS; principal; 2018-07-18 07:45)
DX: K81.9 Cholecystitis, unspecified (principal); R18.8 Other ascites; K42.9 Umbilical hernia without obstruction or gangrene; E66.01 Morbid (severe) obesity due to excess calories; Z68.32 Body mass index [BMI] 32.0-32.9, adult